=== PATIENT | male | born 1990 | race Caucasian/White ===

== ENCOUNTER 2020-08-12 15:21 | Emergency (ER) | payer SELFPAY ==
--- NOTE | 2020-08-12 15:56 | XRR_ITS ---
PROCEDURE INFORMATION: Exam: XR Chest Exam date and time: 08/12/2020 3:56 PM Age: 30 years old Clinical indication: Cough TECHNIQUE: Imaging protocol: XR of the chest. Views: 1 view. COMPARISON: No relevant prior studies available. FINDINGS: Lungs: Unremarkable. No consolidation. Pleural spaces: Unremarkable. No pleural effusion. No pneumothorax. Heart/Mediastinum: Unremarkable. No cardiomegaly. Bones/joints: Unremarkable. XR/XR chest 1V portable [id number] IMPRESSION: No acute findings.
[2020-08-12 17:01] VITALS: BP 118/64; PULSE 50; RESP 18; TEMP 36.5; O2SAT 96; BMI 22.1
--- NOTE | 2020-08-12 17:15 | W.ED.SOB ---
HPI - SOB/Dyspnea General: Chief Complaint: Shortness of Breath/Dyspnea Stated Complaint: Cough, Congestion, Tested Neg. 08/08 Time Seen by Provider: 08/12/20 17:10 History of Present Illness: HPI Narrative: Patient is a 30-year-old male comes to the ED with shortness of breath and wheezing. Symptoms started last Wednesday, August 07 while at work. He started having wheezing and shortness of breath. Patient then was seen at a walk-in clinic and they told him he had an asthma attack sent him home with an inhaler and they also performed Covid test which was negative. Patient says he still having some wheezing and he uses his albuterol inhaler daily. He states they did not send him home with any other medications besides albuterol. Associated symptoms: Deny abdominal pain, chest pain, fever(s), nausea, orthopnea, palpitations or vomiting Review of Systems Const: Denies: fever(s), chills or fatigue Eyes: Denies: change in vision or eye discomfort ENMT: Denies: throat pain, odynophagia, nasal discharge or nasal congestion Card: Denies: chest pain, palpitations, edema, swelling of feet/ankles, dyspnea on exertion or orthopnea Resp: Reports: dyspnea and wheezing; Denies: productive cough or non-productive cough GI: Denies: abdominal pain, nausea, vomiting, diarrhea, constipation or hematochezia : Denies: flank pain, difficulty urinating, dysuria or hematuria Musc: Denies: neck pain, back pain or extremity swelling Skin/Breast: Denies: rash or new lesions Neuro: Denies: headache(s), numbness in extremities or weakness in extremities Physical Exam Const: COMMON NORMALS: no acute distress, patient oriented x3, healthy appearing and alert GENERAL APPEARANCE: cooperative and comfortable HENMT: COMMON NORMALS: normocephalic HEAD & SCALP: normocephalic MOUTH: Normal oral and palatal mucosa present THROAT: posterior oropharynx normal and uvula midline Neck/C-Spine: COMMON NORMALS: supple GENERAL: Yes normal visual inspection Resp: COMMON NORMALS: normal respiratory effort, No retractions and No use of accessory muscles EFFORT & INSPECTION: Yes able to speak in complete sentences, No tachypneic, No respiratory distress and No labored AUSCULTATION: wheezes expiratory wheezes, lower bilaterally, upper bilaterally and throughout Cardio: COMMON NORMALS: regular rate, regular rhythm, S1 normal heart sound present, S2 normal heart sound present, No gallops present (Cardio), No clicks present (Cardio), No murmurs present (Cardio) and Peripheral pulses 2+ throughout RATE: regular rate RHYTHM: regular rhythm HEART SOUNDS: S1 normal heart sound present and S2 normal heart sound present PERIPHERAL PULSES: Peripheral pulses 2+ throughout GI: COMMON NORMALS: Normal to inspection, nondistended, normoactive bowel sounds present, Soft to palpation, non-tender and no masses PALPATION: Yes Soft to palpation : COMMON NORMALS: Yes no CVA tenderness BLADDER/KIDNEY EXAM: Yes no CVA tenderness Back/Pelvis: COMMON NORMALS: no CVA tenderness Extremity: COMMON NORMALS: normal to inspection Neuro: COMMON NORMALS: patient oriented x3 and moves all extremities SENSORIUM/ORIENTATION: Yes alert Skin: GENERAL SKIN EXAM: dry skin Course Reevaluation(s): Reevaluation #1: Patient says after DuoNeb breathing treatment he is feels a lot better his wheezing and shortness of breath has improved. Upon auscultation of the lungs his wheezing has improved as well. Time: 18:23 Vital Signs: Vital signs: Vital Signs Temperature 97.7 F 08/12/20 17:01 Pulse Rate 74 08/12/20 18:51 Respiratory Rate 17 08/12/20 18:08 Blood Pressure 118/64 08/12/20 17:01 Pulse Oximetry 98 08/12/20 18:08 MDM - SOB/Dyspnea MDM Narrative: Medical decision making narrative: Patient is a 30-year-old male comes to the ED with shortness of breath and some wheezing. Patient was seen at a walk-in clinic last , August 08 for same symptoms and he was diagnosed with asthma and discharged home with an albuterol inhaler. Patient says his symptoms have improved slightly but he still having the wheezing and shortness of breath. Here in the ED patient does have some expiratory wheezing but appears in no acute respiratory distress. Vitals are stable O2 sat 96% on room air. Chest x-ray showed no acute findings. Patient was given 125 mg of IM Solu-Medrol and DuoNeb breathing treatment. His wheezing and shortness of breath improved patient was diagnosed with reactive airway disease with wheezing and discharged home with a Medrol Dosepak. Return ED precautions given. Patient was told to continue using his albuterol inhaler as needed. Follow-up with PCP in 7 to 10 days reevaluation. Patient stood with plan. Imaging Data^: CXR: Attestation: I personally reviewed and interpreted this imaging study as follows: Radiologist's impression: [place] [id number] [facility] [place].[place], [place] [address]VWjx ReportSigned Patient: Diane Scherer #: [id number]: 1990Acct#:[id number]/Sex: 30 / MADM Date: 08/12/20Loc: ERRoom/Bed:Attending Dr: Ordering Provider/Ordering MD: Pippa Mares Date of Service: 08/12/20 Procedure(s): XR chest 1V portable [id number] Accession Number(s): [id number] Report Number: [id number] PROCEDURE INFORMATION: Exam: XR Chest Exam date and time: 08/12/2020 3:56 PM Age: 30 years old Clinical indication: Cough TECHNIQUE: Imaging protocol: XR of the chest. Views: 1 view. COMPARISON: No relevant prior studies available. FINDINGS: Lungs: Unremarkable. No consolidation. Pleural spaces: Unremarkable. No pleural effusion. No pneumothorax. Heart/Mediastinum: Unremarkable. No cardiomegaly. Bones/joints: Unremarkable. XR/XR chest 1V portable [id number] IMPRESSION: No acute findings. Dictated By:Anamaria Swift By:Anamaria Swift Date/Time:08/12/201718DD/ 16 Discharge Plan Discharge Patient Disposition: Home Clinical Impression: RAD (reactive airway disease) with wheezing Qualifiers: Asthma severity: mild Asthma persistence: intermittent Asthma complication type: uncomplicated Qualified Code(s): J45.20 - Mild intermittent asthma, uncomplicated Condition: Stable Prescriptions: New Medrol (Ilan) 4 mg tablets,dose pack See Rx Instructions .ROUTE .COMPLEX Qty: 21 RF: 0 Discharge Orders: Discharge ED (Routine); Ordered 08/12/20 Ordered By: Sam Broussard Discharge Diet: Regular Discharge Activity: Increase activity as tolerated Patient Instructions: Reactive Airways Disease (ED) Activity Restrictions/Additional Instructions: Follow-up with medical provider as directed. You can start taking your Medrol Dosepak medication tomorrow. Continue using your inhaler as needed for any wheezing or shortness of breath. Return to the ER or your medical provider if condition worsens. Please read and understand discharge instructions. Thank you for choosing [facility] for your healthcare needs today. Please realize this is an emergency room and that we are providing you with a medical screening exam and this may not be complete and all inclusive of all the testing and or work up that you may need to determine your ailment or severity of your illness. It is very important that you follow up as instructed or that you return to the Emergency Department should you have concerns or if your condition changes or worsens in any way. Coding Level of Care Code ED Welding Pantograph Operator for Rogelio Delgado Exam Comprehensive
[2020-08-12 18:08] VITALS: PULSE 72; RESP 17; O2SAT 98
[2020-08-12] MEDS: ipratropium-albuterol 3 mL Neb INHALATION (18:08)
[2020-08-12 18:19] VITALS: PULSE 74
[2020-08-12 18:51] VITALS: PULSE 74
== END 2020-08-12 18:51 | disposition home or self-care (01) ==
PROVIDERS: Emergency Provider Physician Assistant
DX: J45.20 Mild intermittent asthma, uncomplicated (principal)
CPT/HCPCS: 71045; 94640; 96372; 99283; J2930